=== PATIENT | male | born 2000 | race African-American/Black ===

== ENCOUNTER 2024-10-29 08:40 | Emergency (ER) | payer OTHER, SELFPAY ==
[2024-10-29 09:12] VITALS: BP 112/64; PULSE 72; RESP 20; TEMP 36.6; O2SAT 100; BMI 21.6
--- NOTE | 2024-10-29 09:32 | ED_ITS ---
HPI - GI Bleed General Chief complaint: GI Bleed Stated complaint: Rectal bleeding this morning Time Seen by Provider: 10/29/24 09:30 Source: patient Mode of arrival: Ambulatory History of Present Illness HPI Narrative: Patient is a healthy 24-year-old male presenting today with bloody stool. He reports this morning he has started noticing some left upper quadrant pain and cramping move through couple hours later he had diarrhea. He knows is he afterwards then had some bright red blood. He does have a history of hemorrhoids but reports this was not hemorrhoids it was a lot more blood. He has no nausea no vomiting he is in fact hungry now. He is not dizzy he is not lightheaded. No family history of Crohn's disease or ulcerative colitis. His grandfather does have a history of colon cancer Related Data Allergies Allergy/AdvReac Type Severity Reaction Status Date / Time No Known Allergies Allergy Mild Verified 10/29/24 09:12 Patient History Social History Smoking Status: Never smoker Smoking Status: Never smoker Exam Initial Vital Signs Initial Vital Signs: Vital Signs Temperature 98 F 10/29/24 09:12 Pulse Rate 72 10/29/24 09:12 Respiratory Rate 20 10/29/24 09:12 Blood Pressure 112/64 10/29/24 09:12 Pulse Oximetry 100 10/29/24 09:12 Oxygen Delivery Method Room Air 10/29/24 09:12 GENERAL: Alert very well-appearing 24-year-old male and in no acute distress. HEENT: Head atraumatic,EOMI, pupils reactive, face symmetric, moist mucous membranes CARDIOVASCULAR: Regular rate and rhythm without murmurs, rubs or gallops. RESPIRATORY: Breath sounds equal bilaterally, no wheezes rales or rhonchi. ABDOMEN: Soft, minimally tender left upper quadrant no guarding no real. RECTAL: No hemorrhoid no gross blood guaiac negative EXTREMITIES: Normal range of motion, no clubbing or edema. Neurovascularly intact NEUROLOGICAL: Alert and oriented x4.Normal gait and speech. Cranial nerves II through XII grossly intact. SKIN: Warm, dry, no laceration, no petechiae, no rashes or lesions. Course Orders Ordered: ED Orders 10/29/24 09:27 Complete Blood Count AUTO DIFF Stat Comprehensive Metabolic Panel Stat Lactate (Lactic Acid) Stat PTT Partial Thromboplastin Shant Stat Prothrombin Time INR Stat Type and Screen Stat 10/29/24 09:31 CT angio Abd/Pel GI Bleed Stat Discontinued Medications Ondansetron HCl (Ondansetron 4 Mg/2 Ml Inj) 4 mg IV NOW PRN PRN Reason: Nausea And Vomiting Ondansetron HCl (Ondansetron 4 Mg Odt) 4 mg PO NOW PRN PRN Reason: Nausea And Vomiting Pantoprazole Sodium (Pantoprazole 40 Mg Vial) 40 mg IV NOW ONE Stop: 10/29/24 09:32 Last Admin: 10/29/24 10:04 Dose: 40 mg Documented By: MICHAEL Vital Signs Vital signs: Vital Signs - 8 hr 10/29/24 09:12 Temperature 98 F Pulse Rate 72 Respiratory Rate 20 Blood Pressure 112/64 Pulse Oximetry 100 Oxygen Delivery Method Room Air MDM - GI Bleed Lab Data 10/29/24 09:27 10/29/24 09:27 Labs: Lab Results 10/29/24 Range/Units 09:27 WBC 6.7 (4.5-11.0) X10^3/uL RBC 5.34 (4.5-5.9) X10^6/uL Hgb 15.7 (13.5-17.5) g/dL Hct 45.6 (41-53) % MCV 85.4 (80-100) fL MCH 29.4 (26-34) PG MCHC 34.4 (30-36) % RDW 13.3 (11.6-14.8) % Plt Count 238 (150-400) X10^3/uL Neut % (Auto) 61.4 (50-75) % Lymph % (Auto) 30.2 (25-40) % [place] % (Auto) 5.2 (3-14) % Eos % (Auto) 2.2 (2-4) % Baso % (Auto) 1.0 (0-2) % Neut # (Auto) 4100 (1051-8071) /uL Lymph # (Auto) 2000 (8436-8377) /uL [place] # (Auto) 300 (0-900) /uL Eos # (Auto) 100 (0-450) /uL Baso # (Auto) 100 (0-100) /uL PT 11.4 (9.4-12.5) SECONDS INR 1.0 (0.9-1.3) APTT 37 H (25.1-36.5) SECONDS Sodium 140 (137-145) mmol/L Potassium 4.5 (3.4-5.1) mmol/L Chloride 104 (98-107) mmol/L Carbon Dioxide 25 (22-32) mmol/L BUN 12 (9-20) mg/dL Creatinine 0.75 (0.66-1.25) mg/dL Estimated GFR > 60 (>60) mL/min BUN/Creatinine Ratio 16.0 (6-22) Glucose 88 (70-99) mg/dL Lactate 0.7 (0.7-2.1) mmol/L Calcium 9.7 (8.4-10.2) mg/dL Total Bilirubin 0.8 (0.2-1.3) mg/dL AST 37 (17-59) IU/L ALT 23 (<50) IU/L Alkaline Phosphatase 54 (38-126) U/L Total Protein 8.5 H (6.3-8.2) g/dL Albumin 5.1 H (3.5-5.0) g/dL Globulin 3.4 (1.7-4.1) g/dL Albumin/Globulin Ratio 1.5 (1.0-2.8) Blood Type O Positive Antibody Screen Negative Imaging Data CT scan - abdomen/pelvis: Radiologist's Impression: PROCEDURE: CT ANGIO ABD/PEL GI BLEED INDICATIONS: GI Bleed TECHNIQUE: After the administration of intravenous contrast, 2.5 mm sections acquired from the diaphragm to the iliac crests. 10 mm maximum intensity projection (MIP) coronal and sagittal reformats were then performed. For radiation dose reduction, the following was used: automated exposure control. COMPARISON: None. FINDINGS: Image quality: Diagnostic. Abdominal aorta: No aortic aneurysm or evidence of acute aortic syndrome. Mesenteric arteries: Patent without hemodynamically significant stenosis. Renal arteries: Patent without hemodynamically significant stenosis. Lower chest: Unremarkable. ABDOMEN: Liver: No solid mass. Gallbladder: No radiopaque gallstones or wall thickening. Biliary ducts: No biliary dilation. Pancreas: No ductal dilation. Spleen: Size is within normal limits. Adrenal Glands: No adrenal nodules. Kidneys and Ureters: No hydronephrosis. No solid mass. No complex renal cystic lesion which requires follow up. Stomach and Bowel: Normal colonic caliber, without significant wall thickening. Normal appendix. Peritoneum: No abnormal intraperitoneal fluid. No free air. Ventral Wall: No hernia. Abdominal Nodes: No retroperitoneal or mesenteric adenopathy by size criteria. Vessels: Aorta, as above. Normal IVC. PELVIS: Pelvic Organs: Unremarkable. Bladder: Unremarkable. Pelvic Nodes: No enlarged lymph nodes. Miscellaneous: No inguinal hernias are seen. Bones: No aggressive osseous abnormality. IMPRESSION: 1. Unremarkable CTA of the abdomen and pelvis without evidence of acute GI bleed. 2. No acute abdominal process identified. Dictated by: Ok Sadler M.D. on 10/29/2024 at 10:22 MDM Narrative Medical decision making narrative: MDM CC: Bloody stool Complicating co-morbidities: Healthy male Data collected from: Patient Medical records reviewed: None Differential considered: Gastrointestinal viral, Crohn's, ulcerative colitis, polyp colon cancer, ischemia Exam documented above, pertinent findings include: Abdomen is soft nontender rectal does not show any evidence of hemorrhoid guaiac is negative no gross blood Lab Test results independently reviewed as above. Pertinent findings: No leukocytosis no anemia Electrolytes within normal limits Lactate 0.7 Imaging studies independently reviewed: CT abdomen pelvis no active bleed Consultations: None Treatments: No Re-evaluations: Patient went to the restroom no bloody Discussion: At this time patient had a couple of episode of bloody stool this morning. Abdomen is soft CT does not show any evidence of active bleeding blood work is overall reassuring. No leukocytosis no anemia lactate within normal limits. At this time recommend supportive care. Recommend outpatient follow-up for colonoscopy. Given strict return precautions Discharge Plan Departure Patient Disposition: Home Clinical Impression: Rectal bleed Instructions: Gastrointestinal Bleeding Activity Restrictions/Additional Instructions: *You have been diagnosed with rectal bleed *What to do: At this time blood work and CAT scanner overall reassuring. However I do recommend a colonoscopy as an outpatient to help diagnosed Crohn's ulcerative colitis and colon cancer *Continue to take medications as directed *Follow up with your primary care provider in 2-3 days or call [phone] *Return to ER if you should have increasing bloody stools dizziness lightheadedness and pain or any new, worsening or concerning symptoms Stand Alone Forms: Patient Portal/API
[2024-10-29 09:40] LABS: Add Manual Diff / Slide Review NO; Hematocrit 45.6 % (41-53); Hemoglobin 15.7 g/dL (13.5-17.5); Lymphocytes Absolute Auto 2000 /uL (1100-4500); Mean Corpuscular HGB Conc 34.4 % (30-36); Mean Corpuscular Hemoglobin 29.4 PG (26-34); Mean Corpuscular Volume 85.4 fL (80-100); Platelet Count 238 X10^3/uL (150-400)
[2024-10-29 09:49] LABS: INR 1.0 (0.9-1.3); Prothrombin Time 11.4 SECONDS (9.4-12.5)
[2024-10-29 09:52] LABS: PTT Partial Thromboplastin Tim 37 SECONDS (25.1-36.5)
[2024-10-29 09:57] LABS: Lactate (Lactic Acid) 0.7 mmol/L (0.7-2.1)
[2024-10-29] MEDS: PANTOPRAZOLE 40 MG VIAL IV (10:04)
[2024-10-29 10:06] LABS: Alanine Aminotransferase 23 IU/L (<50); Albumin 5.1 g/dL (3.5-5.0); Albumin Globulin Ratio 1.5 (1.0-2.8); Alkaline Phosphatase 54 U/L (38-126); Blood Urea Nitrogen 12 mg/dL (9-20); Calcium 9.7 mg/dL (8.4-10.2); Carbon Dioxide 25 mmol/L (22-32); Chloride 104 mmol/L (98-107); Estimated Glomerular Filt Rate > 60 mL/min (>60); Globulin 3.4 g/dL (1.7-4.1); Glucose 88 mg/dL (70-99); HEMOLYSIS 37 (0-50); Potassium 4.5 mmol/L (3.4-5.1); Sodium 140 mmol/L (137-145); Total Protein 8.5 g/dL (6.3-8.2)
== END 2024-10-29 11:38 | disposition home or self-care (01) ==
PROVIDERS: Emergency Provider Emergency Medicine
DX: K62.5 Hemorrhage of anus and rectum (principal); R10.12 Left upper quadrant pain
CPT/HCPCS: 36415; 74174; 80053; 83605; 85025; 85610; 85730; 86850; 86900; 86901; 96374; 99283; 99284; J2470; Q9967